=== PATIENT | female | born 1945 | race Caucasian/White ===

== ENCOUNTER 2020-06-13 20:21 | Emergency (ER) | payer OTHER ==
[~2020-06-13] VITALS: Ht 152.4 cm; Wt 72.6 kg
[2020-06-13 20:30] VITALS: BP_SYST 174
--- NOTE | 2020-06-13 20:38 | NUR ---
Patient to ER bed 3 to gown for evaluation. Side rails up. Report given to Shonda Alvarez.
--- NOTE | 2020-06-13 20:44 | NUR ---
pt a&o x4 c/o of swelling to left cheek near earlobe that started saturday. pt reports her pain is a 4 out of 10 and is throbbing, area is warm to the touch. the swelling appears to only be on outside port of cheek, not inside mouth. pt reports have cataract surgery last saturday. pt only has one wisdom tooth left on left side. pt denies aching or sensitivity to teeth. pt denies taking any new medications or any new allergies. pt denies tongue/throat swelling, difficulty breathing/swallowing.
--- NOTE | 2020-06-13 20:50 | NUR ---
ER Dr. Franco at bedside examining patient.
[2020-06-13] MEDS ORDERED: NACL 0.9% 1,000 ML IV ONE (21:00)
--- NOTE | 2020-06-13 21:05 | NUR ---
# 20 gauge angiocath placed to LAC. Use of asceptic technique. Opsite placed over site. Blood return noted. Blood, blood cultures, lactic for lab drawn from site. Flushed with 10 cc of normal saline. No evidence of infiltration noted. Patient tolerated well.
--- NOTE | 2020-06-13 21:12 | NUR ---
consent for CT with contrast signed and placed in chart.
--- NOTE | 2020-06-13 21:15 | NUR ---
Patient transported to radiology via wheelchair, accompanied by
[2020-06-13 21:22] LABS: BASOPHILS # (AUTO) 0.1 K/uL (0.0-0.2); BASOPHILS % (AUTO) 0.7 % (0.0-2.0); EOSINOPHILS # (AUTO) 0.1 K/uL (0.0-0.4); EOSINOPHILS % (AUTO) 1.5 % (0.0-4.0); HEMATOCRIT 39.7 % (36-48); HEMOGLOBIN 13.1 g/dL (12.0-16.0); MEAN CORPUSCULAR HEMOGLOBIN 30 pg (27-31); MEAN CORPUSCULAR HGB CONC 33 % (32-36); MEAN CORPUSCULAR VOLUME 90 fL (79.0-98.0); MONOCYTES # (AUTO) 0.8 K/uL (0.0-1.0); MONOCYTES % (AUTO) 8.4 % (1.7-9.3); NEUTROPHILS # (AUTO) 5.1 K/uL (1.8-7.7); NEUTROPHILS % (AUTO) 56.4 % (40.0-70.0); PLATELET COUNT (AUTO) 146 K/uL (130-430); RED BLOOD CELL COUNT(AUTO) 4.43 MIL/uL (4.2-6.2); RED CELL DISTRIBUTION WIDTH 12.4 % (9.0-15.0); WHITE BLOOD COUNT (AUTO) 9.1 K/uL (4.8-10.8)
[2020-06-13] MEDS ORDERED: IOHEXOL 100 ML IV ONE (21:25)
[2020-06-13 21:40] LABS: ANION GAP 8 (5-15); CALCIUM 9.1 mg/dL (8.4-11.0); CHLORIDE 101 mmol/L (98-107); CREATININE 0.86 mg/dL (0.55-1.30); GLUCOSE 123 mg/dL (70-99); POTASSIUM 3.5 mmol/L (3.5-5.1); SODIUM SERUM 138 mmol/L (136-145); UREA NITROGEN, BLOOD 15 mg/dL (8-21)
--- NOTE | 2020-06-13 22:06 | NUR ---
patient ambulated to restroom with steady gait. vital signs stable.
[2020-06-13 22:50] VITALS: BP_SYST 144
--- NOTE | 2020-06-13 22:50 | NUR ---
Patient given written and verbal discharge instructions and verbalizes understanding. ER MD discussed with patient the results and treatment provided. Patient in stable condition. ID arm band removed. IV catheter removed intact and dressing applied, no active bleeding. Rx of clindamycin and flagyl given. Patient educated on pain management and to follow up with PMD. Pain Scale 3/10. Opportunity for questions provided and answered. Medication side effect fact sheet provided.
== END 2020-06-13 22:50 | disposition home or self-care (01) ==
LOC: SED 20:21
DX: K11.20 Sialoadenitis, unspecified (principal); I10 Essential (primary) hypertension; Z88.0 Allergy status to penicillin
CPT/HCPCS: 36415; 70486; 80048; 85025; 96360; 99284; J7030; Q9967

== ENCOUNTER 2021-04-17 06:20 | Day surgery (SDC) | payer OTHER, SELFPAY ==
[~2021-04-17] VITALS: Ht 152.4 cm; Wt 72.6 kg
[~2021-04-17 06:20] MED LIST: AMLO2.5T2 PO; ATEN50TA PO; LOSA50TA3 PO
[2021-04-17] MEDS ORDERED: LR 1,000 ML IV SCH (10:15)
[2021-04-17] MEDS ORDERED: MIDAZOLAM HCL 2 MG/2 ML VIAL (VERSED) IVP PRN (10:15)
[2021-04-17] MEDS ORDERED: hydrALAZINE HCL 20 MG/ML VIAL IVP PRN (10:15)
[2021-04-17] MEDS ORDERED: ONDANSETRON HCL 4 MG/2 ML VIAL IVP PRN (10:15)
[2021-04-17] MEDS ORDERED: METOCLOPRAMIDE HCL 10 MG/2 ML VIAL IVP PRN (10:15)
[2021-04-17] MEDS ORDERED: HYDROmorphone 1 MG/ML INJ. CARTRIDGE IVP PRN ×2 (10:15)
[2021-04-17] MEDS ORDERED: MEPERIDINE HCL/PF 25 MG/ML DISP.SYRIN IVP PRN (10:15)
[2021-04-17] MEDS ORDERED: LABETALOL 100 MG/ 20ML VIAL IVP PRN (10:15)
[2021-04-17] MEDS ORDERED: IBUPROFEN 800 MG TABLET PO PRN (13:15)
[2021-04-17] MEDS ORDERED: OXYCODONE/ACETAMINOPHEN 5-325 TABLET PO PRN ×2 (13:30)
[2021-04-17] MEDS ORDERED: ONDANSETRON HCL 4 MG/2 ML VIAL IM PRN (13:30)
[2021-04-17 15:56] VITALS: BP_SYST 144
== END 2021-04-17 13:40 | disposition home or self-care (01) ==
LOC: SMU 06:20 → SDS 06:20
PROVIDERS: ATTEND Obstetrics & Gynecology
DX: N95.0 Postmenopausal bleeding (principal); N84.0 Polyp of corpus uteri; R93.89 Abnormal findings on diagnostic imaging of other specified body structures; Z20.822 Contact with and (suspected) exposure to COVID-19
CPT/HCPCS: 58558; 88305; C1819; U0003